=== PATIENT | male | born 1950 | race Caucasian/White ===

== ENCOUNTER 2016-09-20 21:08 | Emergency (ER) | payer SELFPAY ==
[~2016-09-20] VITALS: Ht 175.3 cm; Wt 68.0 kg
[~2016-09-20 21:08] MED LIST: RISP2TAB35; [UNRECOGNIZED DRUG - OTHER]
[2016-09-20 21:41] LABS: HEMOGLOBIN 14.1 g/dL (13.7-18.0)
[2016-09-20 21:53] LABS: ASPARTATE AMINO TRANSFERASE 205 U/L (15-37); BLOOD UREA NITROGEN 19 mg/dL (7-18)
[2016-09-20] MEDS ORDERED: CIPROFLOXACIN 500 MG TABLET PO ONE (23:30)
[2016-09-20 23:54] VITALS: BP 150/80
== END 2016-09-20 23:56 | disposition home or self-care (01) ==
LOC: ED 23:30
DX: N39.0 Urinary tract infection, site not specified (principal); J44.9 Chronic obstructive pulmonary disease, unspecified
CPT/HCPCS: 36415; 74176; 80053; 81001; 83690; 85025; 87077; 87086; 87186; 99285

== ENCOUNTER 2017-01-11 08:35 | Emergency (ER) | payer MEDICARE ==
[~2017-01-11] VITALS: Ht 175.3 cm; Wt 62.8 kg
[2017-01-11 08:41] VITALS: BP 124/72
== END 2017-01-11 10:18 | disposition home or self-care (01) ==
LOC: ED 09:28
DX: B34.9 Viral infection, unspecified (principal); F17.210 Nicotine dependence, cigarettes, uncomplicated; J44.9 Chronic obstructive pulmonary disease, unspecified; K74.60 Unspecified cirrhosis of liver
CPT/HCPCS: 71020; 99284

== ENCOUNTER 2017-02-08 05:32 | Emergency (ER) | payer MEDICARE ==
[~2017-02-08] VITALS: Ht 175.3 cm; Wt 62.6 kg
[2017-02-08 05:33] VITALS: BP 150/84
[2017-02-08] MEDS ORDERED: OXYcodone/APAP 10/325MG TABLET ONE (06:52)
[2017-02-08] MEDS ORDERED: CEFUROXIME 250 MG TABLET PO ONE (07:00)
[2017-02-08] MEDS ORDERED: OXYcodone/APAP 10/325MG TABLET PO ONE (07:00)
== END 2017-02-08 07:50 | disposition home or self-care (01) ==
LOC: ED 05:53
DX: H10.31 Unspecified acute conjunctivitis, right eye (principal); H54.61 Unqualified visual loss, right eye, normal vision left eye; H57.11 Ocular pain, right eye; J44.9 Chronic obstructive pulmonary disease, unspecified; F17.200 Nicotine dependence, unspecified, uncomplicated
CPT/HCPCS: 99283

== ENCOUNTER 2017-02-08 17:01 | Emergency (ER) | payer MEDICARE ==
[~2017-02-08] VITALS: Ht 175.3 cm; Wt 55.0 kg
[2017-02-08 17:08] VITALS: BP 168/103
[2017-02-08] MEDS ORDERED: SODIUM CHLORIDE FLUSH 10ML SYR IVF ONE (18:30)
[2017-02-08 18:40] LABS: BLOOD UREA NITROGEN 8 mg/dL (7-18)
[2017-02-08 18:51] LABS: HEMATOCRIT 36.5 % (39.2-51.8); HEMOGLOBIN 12.5 g/dL (13.7-18.0); WHITE BLOOD COUNT 9.5 x10^3/uL (3.4-10)
[2017-02-08 19:33] LABS: DIFF TOTAL CELLS COUNTED 100 CELL DIFF
[2017-02-08 19:35] LABS: VERIFY COUNTS? YES
== END 2017-02-08 20:09 | disposition left against medical advice (07) ==
LOC: ED 18:20
DX: L03.211 Cellulitis of face (principal); J44.9 Chronic obstructive pulmonary disease, unspecified
CPT/HCPCS: 36415; 80048; 82040; 85025; 99284